=== PATIENT | female | born 1960 | race Two or more races ===

== ENCOUNTER 2017-10-04 18:01 | Emergency (ER) | payer OTHER ==
[~2017-10-04] VITALS: Ht 152.4 cm; Wt 64.4 kg
[~2017-10-04 18:01] MED LIST: AMBIEN10 MG; CELEXA20 MG; CLONAZEPAM2 M1; GILTUSS TR TAB1 EACH PO; KETO10TA2 PO; MOTRIN800 MG PO; ORPH100T PO; PROVENTIL3 ML/2.5 M IH; RELAGESIC TABL1 EACH PO; ZITHROMAX500 MG PO
== END 2017-10-04 21:50 | disposition home or self-care (01) ==
LOC: ER 18:01
DX: R10.31 Right lower quadrant pain (principal); M79.604 Pain in right leg

== ENCOUNTER → 2018-03-04 | Outpatient (CLI) | payer OTHER | END | disposition home or self-care (01) | LOC: MAMO-SONO 13:21 | DX: Z12.31 Encounter for screening mammogram for malignant neoplasm of breast (principal); Z87.898 Personal history of other specified conditions; N60.01 Solitary cyst of right breast; N60.02 Solitary cyst of left breast ==

== ENCOUNTER 2018-03-10 11:02 | Emergency (ER) | payer OTHER ==
[~2018-03-10] VITALS: Ht 154.9 cm; Wt 67.1 kg
== END 2018-03-10 13:00 | disposition home or self-care (01) ==
LOC: ER 11:02
DX: B34.9 Viral infection, unspecified (principal)

== ENCOUNTER 2018-06-21 09:31 | Emergency (ER) | payer OTHER ==
[~2018-06-21] VITALS: Ht 154.9 cm; Wt 64.0 kg
== END 2018-06-21 13:36 | disposition home or self-care (01) ==
LOC: ER 09:31
DX: M62.830 Muscle spasm of back (principal); M54.5 Low back pain

== ENCOUNTER 2018-09-18 09:13 | Emergency (ER) | payer OTHER ==
[~2018-09-18] VITALS: Ht 165.1 cm; Wt 64.0 kg
== END 2018-09-18 14:16 | disposition home or self-care (01) ==
LOC: ER 09:13
DX: J22 Unspecified acute lower respiratory infection (principal); J11.1 Influenza due to unidentified influenza virus with other respiratory manifestations

== ENCOUNTER 2018-11-13 09:41 | Emergency (ER) | payer OTHER ==
[~2018-11-13] VITALS: Ht 162.6 cm; Wt 63.5 kg
== END 2018-11-13 15:56 | disposition home or self-care (01) ==
LOC: ER 09:41
DX: M25.511 Pain in right shoulder (principal)

== ENCOUNTER 2019-02-18 08:50 | Emergency (ER) | payer OTHER ==
[~2019-02-18] VITALS: Ht 157.5 cm; Wt 65.8 kg
== END 2019-02-18 12:11 | disposition home or self-care (01) ==
LOC: ER 08:50
DX: M54.32 Sciatica, left side (principal)

== ENCOUNTER 2020-05-15 08:59 | Outpatient (CLI) | payer OTHER | END 2020-05-15 09:03 | disposition home or self-care (01) | LOC: RAD 08:59 | DX: M15.0 Primary generalized (osteo)arthritis (principal); M26.621 Arthralgia of right temporomandibular joint ==

== ENCOUNTER 2020-06-28 08:43 | Emergency (ER) | payer OTHER ==
[~2020-06-28] VITALS: Ht 160 cm; Wt 63.0 kg
[2020-06-28] MEDS ORDERED: KETO10TA2 PO (09:21)
[2020-06-28] MEDS ORDERED: NORFLEX100MG PO (09:21)
[2020-06-28] MEDS ORDERED: FLUCONAZOLE150 MG PO (09:21)
== END 2020-06-28 09:31 | disposition home or self-care (01) ==
LOC: ER 08:43
DX: S33.5XXA Sprain of ligaments of lumbar spine, initial encounter (principal); B37.3 Candidiasis of vulva and vagina; W18.39XA Other fall on same level, initial encounter; Y93.89 Activity, other specified; Y92.018 Other place in single-family (private) house as the place of occurrence of the external cause; Y99.8 Other external cause status

== ENCOUNTER 2021-02-10 19:43 | Emergency (ER) | payer OTHER ==
[~2021-02-10] VITALS: Ht 152.4 cm; Wt 63.0 kg
[~2021-02-10 19:43] MED LIST changes: +FLUCONAZOLE150 MG PO; +NORFLEX100MG PO
== END 2021-02-10 20:28 | disposition home or self-care (01) ==
LOC: ER 19:43
DX: M54.2 Cervicalgia (principal); M62.838 Other muscle spasm; M54.5 Low back pain

== ENCOUNTER 2021-02-26 10:36 | Emergency (ER) | payer OTHER ==
[~2021-02-26] VITALS: Ht 152.4 cm; Wt 59.0 kg
[2021-02-26] MEDS ORDERED: CIPRO500 MG PO (14:54)
[2021-02-26] MEDS ORDERED: KETO10TA2 PO (14:57)
[2021-02-26] MEDS ORDERED: NORFLEX100MG PO (14:57)
== END 2021-02-26 15:18 | disposition home or self-care (01) ==
LOC: ER 10:36
DX: M54.5 Low back pain (principal); N39.0 Urinary tract infection, site not specified

== ENCOUNTER 2021-03-22 07:33 | Emergency (ER) | payer OTHER ==
[~2021-03-22] VITALS: Ht 157.5 cm; Wt 64.4 kg
[~2021-03-22 07:33] MED LIST changes: +CIPRO500 MG PO
[2021-03-22] MEDS ORDERED: CLONAZEPAM2 M1 PO (07:53)
[2021-03-22] MEDS ORDERED: DICLOFENAC SOD100 MG PO (09:54)
[2021-03-22] MEDS ORDERED: SKELAXIN800 MG PO (09:54)
[2021-05-21] MEDS ORDERED: KETO10TA2 PO (22:15)
[2021-05-21] MEDS ORDERED: NORFLEX100MG PO (22:15)
== END 2021-03-22 09:57 | disposition home or self-care (01) ==
LOC: ER 07:33
DX: M62.830 Muscle spasm of back (principal)

== ENCOUNTER 2021-05-10 08:43 | Emergency (ER) | payer OTHER ==
[~2021-05-10] VITALS: Ht 154.9 cm; Wt 64.4 kg
[~2021-05-10 08:43] MED LIST changes: +CLONAZEPAM2 M1 PO; +DICLOFENAC SOD100 MG PO; +SKELAXIN800 MG PO
[2021-05-10] MEDS ORDERED: CELEXA20 MG PO (08:56)
[2021-05-10] MEDS ORDERED: NORFLEX100MG PO (10:43)
[2021-05-10] MEDS ORDERED: KETO10TA2 PO (10:43)
[2021-05-21] MEDS ORDERED: NORFLEX100MG PO (22:15)
[2021-05-21] MEDS ORDERED: KETO10TA2 PO (22:15)
== END 2021-05-10 11:42 | disposition home or self-care (01) ==
LOC: ER 08:43
DX: M54.5 Low back pain (principal)

== ENCOUNTER → 2021-05-21 | Emergency (ER) | payer OTHER ==
[~2021-05-21] VITALS: Ht 152.4 cm; Wt 63.5 kg
[~2021-05-21] MED LIST changes: +CELEXA20 MG PO
== END | disposition home or self-care (01) ==
LOC: ER 19:47
DX: M62.830 Muscle spasm of back (principal); M54.5 Low back pain

== ENCOUNTER → 2021-06-13 | Outpatient (CLI) | payer OTHER | END | disposition home or self-care (01) | LOC: MRI 12:56 | PROVIDERS: ATTEND Internal Medicine Cardiovascular Disease | DX: M54.5 Low back pain (principal); M54.16 Radiculopathy, lumbar region | CPT/HCPCS: 72148 ==

== ENCOUNTER 2021-09-17 07:45 | Emergency (ER) | payer OTHER ==
[~2021-09-17] VITALS: Ht 154.9 cm; Wt 58.5 kg
[2021-09-18] MEDS ORDERED: AMBIEN10 MG PO (08:43)
[2021-09-18] MEDS ORDERED: KLOR-CON8 MEQ (08:43)
[2021-09-18] MEDS ORDERED: CLONAZEPAM1 MG PO (08:44)
== END 2021-09-17 14:38 | disposition home or self-care (01) ==
LOC: ER 07:45
DX: M54.59 Other low back pain (principal); R30.0 Dysuria

== ENCOUNTER 2021-09-18 08:32 | Emergency (ER) | payer OTHER ==
[~2021-09-18] VITALS: Ht 154.9 cm; Wt 58.5 kg
[2021-09-18] MEDS ORDERED: AMBIEN10 MG PO (08:43)
[2021-09-18] MEDS ORDERED: KLOR-CON8 MEQ (08:43)
[2021-09-18] MEDS ORDERED: CLONAZEPAM1 MG PO (08:44)
== END 2021-09-18 21:32 | disposition home or self-care (01) ==
LOC: ER 08:32
DX: N39.0 Urinary tract infection, site not specified (principal); N23 Unspecified renal colic

== ENCOUNTER 2021-11-05 10:51 | Outpatient (CLI) | payer OTHER ==
[~2021-11-05 10:51] MED LIST changes: +AMBIEN10 MG PO; +CLONAZEPAM1 MG PO; +KLOR-CON8 MEQ
== END 2021-11-05 11:00 | disposition home or self-care (01) ==
LOC: MAMO-SONO 10:51
DX: N63.0 Unspecified lump in unspecified breast (principal)

== ENCOUNTER 2022-01-03 08:44 | Emergency (ER) | payer OTHER ==
[~2022-01-03] VITALS: Ht 154.9 cm; Wt 57.6 kg
== END 2022-01-03 11:08 | disposition home or self-care (01) ==
LOC: ER 08:44
DX: M62.830 Muscle spasm of back (principal)

== ENCOUNTER 2022-02-08 09:22 | Emergency (ER) | payer OTHER ==
[~2022-02-08] VITALS: Ht 154.9 cm; Wt 57.2 kg
[2022-02-08] MEDS ORDERED: NORFLEX100MG PO (13:32)
[2022-02-08] MEDS ORDERED: CYCLOBENZAPRINE10 MG PO (13:32)
[2022-02-08] MEDS ORDERED: VISTARIL50 MG PO (13:32)
== END 2022-02-08 13:37 | disposition home or self-care (01) ==
LOC: ER 09:22
DX: M62.830 Muscle spasm of back (principal); M54.89 Other dorsalgia; M19.90 Unspecified osteoarthritis, unspecified site; F41.9 Anxiety disorder, unspecified

== ENCOUNTER 2022-06-03 19:25 | Emergency (ER) | payer OTHER ==
[~2022-06-03] VITALS: Ht 154.9 cm; Wt 55.8 kg
[~2022-06-03 19:25] MED LIST changes: +CYCLOBENZAPRINE10 MG PO; +VISTARIL50 MG PO
[2022-06-03] MEDS ORDERED: RESTORIL30 M1 PO (19:47)
[2022-06-03] MEDS ORDERED: BUSBAR (19:47)
[2022-06-03] MEDS ORDERED: KLONOPIN (19:47)
[2022-06-03] MEDS ORDERED: [UNRECOGNIZED DRUG - OTHER] (19:48)
[2022-06-03] MEDS ORDERED: DRAMAMINE LESS25 MG PO (21:24)
== END 2022-06-03 21:39 | disposition home or self-care (01) ==
LOC: ER 19:25
DX: R42 Dizziness and giddiness (principal); Z88.6 Allergy status to analgesic agent

== ENCOUNTER 2022-07-20 07:35 | Emergency (ER) | payer OTHER ==
[~2022-07-20] VITALS: Ht 154.9 cm; Wt 58.5 kg
[~2022-07-20 07:35] MED LIST changes: +BUSPAR PO; +DRAMAMINE LESS25 MG PO; +KLONOPIN PO; +RESTORIL30 M1 PO; +[UNRECOGNIZED DRUG - OTHER] PO
== END 2022-07-20 10:25 ==
LOC: ER 07:35
DX: F41.9 Anxiety disorder, unspecified (principal); Z88.8 Allergy status to other drugs, medicaments and biological substances

== ENCOUNTER 2022-08-19 08:10 | Emergency (ER) | payer OTHER ==
[~2022-08-19] VITALS: Ht 152.4 cm; Wt 55.8 kg
[2022-08-19] MEDS ORDERED: AMBIEN10 MG PO (08:18)
[2022-08-19] MEDS ORDERED: NORFLEX100MG PO (10:14)
[2022-08-19] MEDS ORDERED: KETO10TA2 PO (10:14)
== END 2022-08-19 11:31 | disposition home or self-care (01) ==
LOC: ER 08:10
DX: M54.50 Low back pain, unspecified (principal); Z88.5 Allergy status to narcotic agent; Z86.59 Personal history of other mental and behavioral disorders

== ENCOUNTER 2022-08-26 09:55 | Emergency (ER) | payer OTHER ==
[~2022-08-26] VITALS: Ht 154.9 cm; Wt 55.3 kg
== END 2022-08-26 11:33 | disposition home or self-care (01) ==
LOC: ER 09:55
DX: M54.2 Cervicalgia (principal); Z88.8 Allergy status to other drugs, medicaments and biological substances

== ENCOUNTER 2022-10-17 07:47 | Outpatient (CLI) | payer OTHER | END 2022-10-17 07:59 | disposition home or self-care (01) | LOC: MAMO-SONO 07:47 | DX: Z12.31 Encounter for screening mammogram for malignant neoplasm of breast (principal); N63.0 Unspecified lump in unspecified breast ==

== ENCOUNTER 2022-10-30 08:58 | Emergency (ER) | payer OTHER ==
[~2022-10-30] VITALS: Ht 160 cm; Wt 63.5 kg
[2022-10-30] MEDS ORDERED: NORFLEX100MG PO (10:06)
== END 2022-10-30 10:58 | disposition home or self-care (01) ==
LOC: ER 08:58
DX: M54.50 Low back pain, unspecified (principal); F41.8 Other specified anxiety disorders; M62.830 Muscle spasm of back; Z88.6 Allergy status to analgesic agent

== ENCOUNTER 2022-11-12 08:05 | Emergency (ER) | payer OTHER ==
[~2022-11-12] VITALS: Ht 154.9 cm; Wt 60.8 kg
[2022-11-12] MEDS ORDERED: ORPHENADRINE C100 MG PO (09:34)
== END 2022-11-12 09:40 | disposition home or self-care (01) ==
LOC: ER 08:05
DX: M62.830 Muscle spasm of back (principal); M51.37 Other intervertebral disc degeneration, lumbosacral region; Z88.6 Allergy status to analgesic agent; F41.8 Other specified anxiety disorders

== ENCOUNTER 2023-02-12 07:17 | Emergency (ER) | payer OTHER ==
[~2023-02-12] VITALS: Ht 152.4 cm; Wt 59.0 kg
[~2023-02-12 07:17] MED LIST changes: +ORPHENADRINE C100 MG PO
[2023-02-12] MEDS ORDERED: CELEXA20 MG (07:41)
[2023-02-12] MEDS ORDERED: ZITHROMAX500 MG PO (11:10)
[2023-02-12] MEDS ORDERED: ALBUTEROL0.63 MG/3 IH (11:10)
[2023-02-12] MEDS ORDERED: BENZONATATE200 M1 PO (11:10)
== END 2023-02-12 11:14 | disposition home or self-care (01) ==
LOC: ER 07:17
DX: J21.8 Acute bronchiolitis due to other specified organisms (principal); F41.9 Anxiety disorder, unspecified; F33.9 Major depressive disorder, recurrent, unspecified; Z20.822 Contact with and (suspected) exposure to COVID-19; Z88.8 Allergy status to other drugs, medicaments and biological substances

== ENCOUNTER 2023-11-18 09:41 | Outpatient (CLI) | payer OTHER ==
[~2023-11-18 09:41] MED LIST changes: +ALBUTEROL0.63 MG/3 IH; +BENZONATATE200 M1 PO
== END 2023-11-18 09:48 | disposition home or self-care (01) ==
LOC: MAMO-SONO 09:41
DX: N63.0 Unspecified lump in unspecified breast (principal); Z12.31 Encounter for screening mammogram for malignant neoplasm of breast

== ENCOUNTER 2023-12-27 13:28 | Emergency (ER) | payer OTHER ==
[~2023-12-27] VITALS: Ht 162.6 cm; Wt 65.8 kg
[2023-12-27] MEDS ORDERED: ORPHENADRINE CITRATE 30 MG/ML AMPUL IM STA (14:43)
[2023-12-27] MEDS ORDERED: KETOROLAC TROMETHAMINE 30 MG VIAL IM STA (14:43)
== END 2023-12-27 14:56 | disposition home or self-care (01) ==
LOC: ER 13:29
DX: M54.9 Dorsalgia, unspecified (principal); Z88.5 Allergy status to narcotic agent; Z88.6 Allergy status to analgesic agent
CPT/HCPCS: 96372; 99282; J1885; J3490

== ENCOUNTER → 2024-10-03 | Emergency (ER) | payer OTHER ==
[~2024-10-03] VITALS: Ht 154.9 cm; Wt 60.8 kg
[~2024-10-03] MED LIST changes: +ALBUTEROL1.25 MG/3 IH; +BUTALB/ACETAMINOPHEN/CAFFEINE 1 TAB TABLET PO ONE; +CELEBREX200MG PO; +CLARITIN10 MG PO; +CLONAZEPAM2 MG; +DIAZEPAM10 MG PO; +DICLOFENAC SODI50 MG PO; +KETOROLAC TROMETHAMINE 60 MG VIAL IM ONE; +KETOROLAC TROMETHAMINE 60 MG VIAL IM SCH; +MAXALT MLT5 MG PO; +MEDROLPACK PO; +ONDANSETRON HCL 2 MG/ML VIAL ONE; +ORPHENADRINE CITRATE 30 MG/ML AMPUL IM ONE; +ORPHENADRINE CITRATE 30 MG/ML AMPUL ONE; +POVIDONE-IODINE 118 ML BOTT TOP ONE; +SEROQUEL400 MG; +TORADOL60 MG IM; +TUSNEL LIQUID178 ML PO; +VOLTAREN-XR100 MG PO
== END | disposition home or self-care (01) ==
LOC: ER 10:17
DX: S33.5XXA Sprain of ligaments of lumbar spine, initial encounter (principal); W19.XXXA Unspecified fall, initial encounter; Y93.89 Activity, other specified; Y92.091 Bathroom in other non-institutional residence as the place of occurrence of the external cause; Y99.8 Other external cause status; M54.9 Dorsalgia, unspecified; Z88.5 Allergy status to narcotic agent; Z88.6 Allergy status to analgesic agent
CPT/HCPCS: 71046; 72040; 72070; 72100; 72170; 96372; 99283; J1885

== ENCOUNTER 2024-12-02 11:21 | Emergency (ER) | payer OTHER ==
[~2024-12-02] VITALS: Ht 154.9 cm; Wt 60.3 kg
[~2024-12-02 11:21] MED LIST changes: -BUTALB/ACETAMINOPHEN/CAFFEINE 1 TAB TABLET PO ONE; -KETOROLAC TROMETHAMINE 60 MG VIAL IM ONE; -KETOROLAC TROMETHAMINE 60 MG VIAL IM SCH; -ONDANSETRON HCL 2 MG/ML VIAL ONE; -ORPHENADRINE CITRATE 30 MG/ML AMPUL IM ONE; -ORPHENADRINE CITRATE 30 MG/ML AMPUL ONE; -POVIDONE-IODINE 118 ML BOTT TOP ONE
[2024-12-02 12:14] VITALS: BP 110/73; O2SAT 96
[2024-12-02] MEDS ORDERED: DICLOFENAC SODI75 MG PO (12:37)
[2024-12-02] MEDS ORDERED: TRIAMCINOLONE ACETONIDE 40 MG/ML VIAL IM ONE (12:45)
[2024-12-02] MEDS ORDERED: KETOROLAC TROMETHAMINE 60 MG VIAL IM ONE (12:45)
== END 2024-12-02 12:47 | disposition home or self-care (01) ==
LOC: ER 11:21
DX: M54.50 Low back pain, unspecified (principal); Z88.8 Allergy status to other drugs, medicaments and biological substances; I10 Essential (primary) hypertension
CPT/HCPCS: 96372; 99282; J1885; J3301

== ENCOUNTER → 2025-01-21 | Emergency (ER) | payer OTHER ==
[~2025-01-21] VITALS: Ht 154.9 cm; Wt 60.3 kg
[~2025-01-21] MED LIST changes: +DICLOFENAC SODI75 MG PO; +KETOROLAC TROMETHAMINE 60 MG VIAL IM ONE; +ORPHENADRINE CITRATE 30 MG/ML AMPUL IM ONE; +ORPHENADRINE CITRATE 30 MG/ML AMPUL ONE
== END | disposition home or self-care (01) ==
LOC: ER 09:16
DX: M54.50 Low back pain, unspecified (principal); F41.8 Other specified anxiety disorders; Z88.8 Allergy status to other drugs, medicaments and biological substances
CPT/HCPCS: 96372; 99282; J1885; J2360

== ENCOUNTER → 2025-02-04 | Emergency (ER) | payer OTHER ==
[~2025-02-04] VITALS: Ht 152.4 cm; Wt 59.0 kg
[~2025-02-04] MED LIST changes: +CLONAZEPAM2 MG PO; -KETOROLAC TROMETHAMINE 60 MG VIAL IM ONE; -ORPHENADRINE CITRATE 30 MG/ML AMPUL IM ONE; -ORPHENADRINE CITRATE 30 MG/ML AMPUL ONE
[2025-02-04 09:31] LABS: COVID-19 AG NEGATIVE (NEGATIVE)
[2025-02-04 09:32] LABS: INFLUENZA A AG NEGATIVE (NEGATIVE)
== END | disposition home or self-care (01) ==
LOC: ER 07:03
PROVIDERS: General Practice
DX: J06.9 Acute upper respiratory infection, unspecified (principal); R05.9 Cough, unspecified; Z20.822 Contact with and (suspected) exposure to COVID-19; Z88.6 Allergy status to analgesic agent

== ENCOUNTER 2025-02-23 17:41 | Emergency (ER) | payer OTHER ==
[~2025-02-23] VITALS: Ht 157.5 cm; Wt 59.0 kg
[2025-02-23] MEDS ORDERED: ORPHENADRINE CITRATE 30 MG/ML AMPUL IM STA (18:10)
[2025-02-23] MEDS ORDERED: KETOROLAC TROMETHAMINE 60 MG VIAL IM STA (18:11)
[2025-02-23] MEDS ORDERED: KETOROLAC TROMETHAMINE 60 MG VIAL IM ONE (18:27)
[2025-02-23] MEDS ORDERED: ORPHENADRINE CITRATE 30 MG/ML AMPUL ONE (18:27)
== END 2025-02-23 18:44 | disposition home or self-care (01) ==
LOC: ER 17:48
DX: M62.830 Muscle spasm of back (principal); W18.39XA Other fall on same level, initial encounter; Y93.89 Activity, other specified; Y92.018 Other place in single-family (private) house as the place of occurrence of the external cause; Z88.8 Allergy status to other drugs, medicaments and biological substances

== ENCOUNTER 2025-03-14 10:02 | Outpatient (CLI) | payer OTHER | END 2025-03-14 10:13 | disposition home or self-care (01) | LOC: MAMO-SONO 10:02 | PROVIDERS: ATTEND Internal Medicine | DX: N64.4 Mastodynia (principal); Z12.31 Encounter for screening mammogram for malignant neoplasm of breast ==

== ENCOUNTER → 2025-03-19 | Emergency (ER) | payer OTHER ==
[~2025-03-19] VITALS: Ht 154.9 cm; Wt 60.8 kg
[~2025-03-19] MED LIST changes: +ACETAMINOPHEN 500 MG GEL..CAP PO ONE; +KETOROLAC TROMETHAMINE 60 MG VIAL IM ONE; +ORPHENADRINE CITRATE 30 MG/ML AMPUL IM ONE; +ORPHENADRINE CITRATE 30 MG/ML AMPUL ONE
== END | disposition home or self-care (01) ==
LOC: ER 10:36
DX: M54.12 Radiculopathy, cervical region (principal); Z88.8 Allergy status to other drugs, medicaments and biological substances; F41.8 Other specified anxiety disorders; M62.838 Other muscle spasm
CPT/HCPCS: 96372; 99282; J1885; J2360

== ENCOUNTER 2025-03-28 09:32 | Outpatient (CLI) | payer OTHER ==
[~2025-03-28 09:32] MED LIST changes: -ACETAMINOPHEN 500 MG GEL..CAP PO ONE; -KETOROLAC TROMETHAMINE 60 MG VIAL IM ONE; -ORPHENADRINE CITRATE 30 MG/ML AMPUL IM ONE; -ORPHENADRINE CITRATE 30 MG/ML AMPUL ONE
== END 2025-03-28 09:33 | disposition home or self-care (01) ==
LOC: NUCLEAR 09:32
PROVIDERS: ATTEND Internal Medicine
DX: M81.0 Age-related osteoporosis without current pathological fracture (principal)

== ENCOUNTER 2025-08-19 07:52 | Emergency (ER) | payer OTHER ==
[~2025-08-19] VITALS: Ht 154.9 cm; Wt 54.4 kg
[2025-08-19] MEDS ORDERED: FAMOTIDINE/PF 20 MG/2 ML VIAL IV STA (09:14)
[2025-08-19] MEDS ORDERED: ONDANSETRON HCL 2 MG/ML VIAL IV STA (09:14)
[2025-08-19] MEDS ORDERED: 0.9 % SODIUM CHLORIDE 1,000 ML IV STA (09:15)
[2025-08-19] MEDS ORDERED: ONDANSETRON HCL 2 MG/ML VIAL ONE (09:19)
[2025-08-19] MEDS ORDERED: FAMOTIDINE/PF 20 MG/2 ML VIAL ONE (09:19)
[2025-08-19 09:46] LABS: BASO % 0.3 % (0.1-1.2); EOS # 0.08 (0.04-0.54); EOS % 0.6 % (0.7-7.0); LYMPH # 0.52 (1.18-3.74); LYMPH % 4.1 % (19.3-53.1); MEAN PLATELET VOLUME 12.20 fl (9.4-12.4); MONO # 0.35 (0.24-0.82); MONO % 2.8 % (4.7-12.5); NEUT # 11.59 (1.56-6.13); NEUT % 92.0 % (34.0-71.1); RED CELL DISTRIBUTION WIDTH 13.0 % (11.6-14.4)
[2025-08-19 09:50] LABS: URINE APPEARANCE Clear; URINE BILIRRUBIN Negative (NEGATIVE); URINE BLOOD Negative; URINE COLOR Yellow; URINE GLUCOSE Negative (NEGATIVE); URINE KETONE Negative (NEGATIVE); URINE LEUKOCYTE Negative; URINE NITRATE Positive; URINE PROTEIN Negative (NEGATIVE); URINE UROBILINOGEN 0.2 E.U./dl
[2025-08-19 09:53] LABS: URINE EPITHELIAL CELLS 4.7 uL (0.0-38.8); URINE RBC 7.9 uL (0.0-20.8); URINE WBC 5.5 uL (0.0-23.2)
[2025-08-19 09:56] LABS: URINE BACTERIA > 9821.5 uL (0.0-1933); URINE CAST 0.00 uL (0.0-1.40)
[2025-08-19 10:26] LABS: ALT/SGPT 21.0 U/L (12-78); AST/SGOT 14.0 U/L (15-37); BILIRUBIN TOTAL 0.42 mg/dL (0.3-1.2); BUN CREA RATIO 34.0 (7.0-25.0); CREATININE SERUM 0.74 mg/dL (0.55-1.02); GFR 79.26; GLOBULINA 3.3 G/DL (2.4-3.5); GLUCOSE FASTING 117.0 mg/dL (65-100); OSMOLALITY SERUM 290.0 MOSM/KG (275-295)
[2025-08-19] MEDS ORDERED: ABATINEX680 MG PO (11:58)
[2025-08-19] MEDS ORDERED: CIPRO500 MG PO (11:58)
[2025-08-19] MEDS ORDERED: ONDANSETRON HCL4 MG PO (11:58)
[2025-08-19] MEDS ORDERED: PEPCID AC20 MG PO (11:58)
== END 2025-08-19 12:52 | disposition home or self-care (01) ==
LOC: ER 07:53
PROVIDERS: General Practice
DX: N39.0 Urinary tract infection, site not specified (principal); A08.8 Other specified intestinal infections; R11.10 Vomiting, unspecified; Z88.6 Allergy status to analgesic agent
CPT/HCPCS: 36415; 76700; 96365; 96366; 99284; J2405; J3490; J7030